=== PATIENT | female | born 1950 | race Caucasian/White ===

== ENCOUNTER 2016-07-10 06:11 | Day surgery (SDC) | payer BC, OTHER ==
[2016-07-06 14:56] VITALS: BMI 24.4
[2016-07-10] MEDS ORDERED: MIDAZOLAM HCL 2 MG/2 ML SINGLE DOSE VIAL ONE ×2 (06:37→08:19)
[2016-07-10] MEDS ORDERED: DEXAMETHASONE SOD PHOSPHATE/PF 10 MG/ML SDV ONE (06:37)
[2016-07-10] MEDS ORDERED: ROPIVACAINE HCL 0.5% 30ML VIAL ONE (06:38)
[2016-07-10] MEDS ORDERED: EPINEPHrine 1:1,000 1 MG/1 ML - 30ML VIAL (INJECTION) ONE (07:10)
[2016-07-10] MEDS ORDERED: DEXAMETHASONE SOD PHOSPHATE 4 MG/1 ML VIAL ONE (07:37)
[2016-07-10] MEDS ORDERED: ONDANSETRON 4 MG/2 ML VIAL ONE (07:37)
[2016-07-10] MEDS ORDERED: ceFAZolin SODIUM 1 GM VIAL ONE (07:37)
[2016-07-10] MEDS ORDERED: PROPOFOL 20 ML ONE (07:55)
[2016-07-10] MEDS ORDERED: oxyCODONE HCL 5 MG TABLET PO PRN ×2 (08:48)
[2016-07-10] MEDS ORDERED: ACETAMINOPHEN 325 MG TABLET (FP) PO SCH (09:00)
[2016-07-10] MEDS ORDERED: oxyCODONE HCL 10 MG SUSTAINED ACTING TABLET PO SCH (10:00)
[2016-07-10] MEDS ORDERED: ONDANSETRON 4 MG/2 ML VIAL IVPUSH PRN (10:44)
[2016-07-10 10:47] VITALS: BP 128/68; PULSE 69; TEMP 98.2
[2016-07-10] MEDS ORDERED: PROMETHAZINE HCL 25 MG/1 ML VIAL IVPUSH PRN (10:49)
--- NOTE | 2016-07-12 21:07 | OP ---
DATE OF OPERATION: 07/10/2016 SURGEON: Lubna Triana MD FILE CLERK DATA ENTRY: DOMINIC Santana PREOPERATIVE DIAGNOSES: 1. Right shoulder impingement. 2. Right shoulder acromioclavicular joint disease. 3. Right shoulder superior labral tear, anterior-posterior, with synovitis. POSTOPERATIVE DIAGNOSES: 1. Right shoulder impingement. 2. Right shoulder acromioclavicular joint disease. 3. Right shoulder superior labral tear, anterior and posterior, with synovitis. PROCEDURE: 1. Right shoulder arthroscopy with arthroscopic subacromial decompression. 2. Right shoulder arthroscopy with resection of distal clavicle, acromioclavicular joint. 3. Right shoulder arthroscopy, debridement, major. CPT CODES: 59517, 57343, 54633. FINDINGS: 1. Severely limited range of motion. 2. Thickened scar tissue, subacromial space. 3. Partial biceps tear, 25% anteriorly. 4. Superior labral tear, anterior and posterior, with intact biceps anchor. 5. Anterior labral fraying. 6. Posterior labral fraying. 7. Type 2 to 3 acromion, anterior and lateral spurring. 8. Inferior spurs of clavicle, with acromioclavicular joint disease. 9. Partial tear, biceps, 10%. 10. Manipulation under anesthesia. Patient with severely limited range of motion post manipulation at 170 degrees elevation, 80 of external rotation, 80 of internal rotation. PROCEDURE: Informed consent was obtained. The patient was taken to the operating room where the upper extremity was prepped and draped in a sterile fashion. Scalene block was performed by Anesthesia. Manipulation under anesthesia allowed for full range of motion. Using standard arthroscopic technique, a posterior incision portal was made, which allowed for introduction of the camera into the glenohumeral joint. Under direct visualization, an anterior incision and portal was made. Extensive and thickened synovitis was debrided. Fraying of the labrum was debrided and superior labrum from anterior to posterior was identified with all loose areas debrided. Any labral tears were taken to stable rim including identified SLAP lesions. All loose cartilage was debrided. Rotator cuff was identified and evaluated as were the subacromial and bursal surfaces. The posterior incision portal was redirected to the subacromial space, where lateral incision and portal was made. Excessive and thickened synovium was removed throughout the subacromial space including the anterior scar tissue, posterior bursa and lateral bursa. The type 2 acromion was converted to a flattened type 1, removing the anterior and lateral spurring. Accessory portal was made at the acromioclavicular joint, removing the inferior spur of the distal clavicle at the acromioclavicular joint, allowing for a distal clavicle partial resection. The shoulder was once again reexamined; all impingement was removed. The shoulder was drained. A single suture as placed on all portals and a sterile dressing was placed. The patient was transferred to the recovery room without complication. LUBNA TRIANA M.D. [id number]
--- NOTE | 2016-07-15 08:54 | PATH ---
Surgical Pathology Report Patient Name: DONALDO TORRES [facility]. Rec. #: [id number] /Age/Gender: 1950 (Age: 66) / F Account: [id number] Location: [facility] AMBULATORY Taken: 07/10/2016 Received: 07/10/2016 Reported: 07/15/2016 Physicians: Reynaldo Squires M.D. Specimen(s) Received RIGHT SHOULDER SHAVINGS Clinical History Right shoulder impingement syndrome, capsulitis Final Diagnosis RIGHT SHOULDER, ARTHROSCOPIC SHAVING: PORTIONS OF SYNOVIUM, CARTILAGE, SKELETAL MUSCLE AND BONE CONSISTENT WITH ARTHROSCOPIC SHAVINGS. Electronically Signed Domingo Cabrera M.D. Gross Description Received in formalin, labeled "right shoulder shavings," is a 2.5 x 1.8 x 0.3 cm. aggregate of gaytan-yellow soft tissue fragments admixed with blood clot. A claims representative portion is submitted in one cassette. 07/13/201607/13/2016
== END 2016-07-10 10:40 | disposition home or self-care (01) ==
LOC: FASU 06:11
PROVIDERS: ATTEND Orthopaedic Surgery
PROC: 0RBJ4ZZ Excision of Right Shoulder Joint, Percutaneous Endoscopic Approach (ICD-10-PCS; 2016-07-10)
PROC: 0PB94ZZ Excision of Right Clavicle, Percutaneous Endoscopic Approach (ICD-10-PCS; principal; 2016-07-10 07:30)
DX: S43.432A Superior glenoid labrum lesion of left shoulder, initial encounter (principal); X58.XXXA Exposure to other specified factors, initial encounter; M75.41 Impingement syndrome of right shoulder; M65.811 Other synovitis and tenosynovitis, right shoulder; M19.011 Primary osteoarthritis, right shoulder; Y93.9 Activity, unspecified; Y92.9 Unspecified place or not applicable
CPT/HCPCS: 88304-TC; 94760